=== PATIENT | male | born 1980 | race Caucasian/White ===

== ENCOUNTER → 2018-03-28 | Emergency (ER) | payer OTHER ==
[~2018-03-28] VITALS: Ht 180.3 cm; Wt 133.8 kg
[~2018-03-28] MED LIST: ALDACTONE50 MG PO; ATENOLOL50 MG; AVAPRO150 MG PO; AVAPRO300 MG PO; Coreg PO; HYDRALAZINE HCL25 MG PO; KETO10TA2 PO; Procardia Xl 30MG TAB PO; SPIRONOLACTONE25 MG PO
== END | disposition home or self-care (01) ==
LOC: ER 22:40
DX: R10.31 Right lower quadrant pain (principal)

== ENCOUNTER 2018-04-06 15:05 | Emergency (ER) | payer OTHER ==
[~2018-04-06] VITALS: Ht 180.3 cm; Wt 137.0 kg
== END 2018-04-06 20:39 | disposition home or self-care (01) ==
LOC: ER 15:05
DX: R42 Dizziness and giddiness (principal); R51 Headache